=== PATIENT | female | born 2000 | race African-American/Black ===

== ENCOUNTER 2024-06-19 11:43 | Emergency (ER) | payer MEDICAID ==
[~2024-06-19] VITALS: Ht 162.6 cm; Wt 74.0 kg
[~2024-06-19 11:43] MED LIST: NOCURR
[2024-06-19 11:53] VITALS: TEMP 98
[2024-06-19] MEDS: ONDANSETRON 4 MG TABLET PO ONE (13:35)
[2024-06-19] MEDS: ACETAMINOPHEN 500 MG TABLET PO ONE (13:35)
[2024-06-19] MEDS: INSULIN REGULAR, HUMAN 100 UNITS/ML SQ ONE (13:37)
[2024-06-19 15:08] VITALS: BP 117/71; PULSE 91; RESP 18; O2SAT 98
[2024-06-19 20:40] LABS: GLUCOMETER DEV NAME(LOC) ER.7; GLUCOSE,POINT OF CARE 221 MG/DL (70-110)
== END 2024-06-19 15:09 | disposition home or self-care (01) ==
LOC: EMS 11:43
DX: O24.112 Pre-existing type 2 diabetes mellitus, in pregnancy, second trimester (principal); E11.65 Type 2 diabetes mellitus with hyperglycemia; Z79.4 Long term (current) use of insulin; Z3A.16 16 weeks gestation of pregnancy
CPT/HCPCS: 99283; 82962; 96372; J1815; Q0162